=== PATIENT | male | born 1970 | race Two or more races ===

== ENCOUNTER 2019-04-03 12:24 | Emergency (ER) | payer OTHER ==
[~2019-04-03] VITALS: Ht 167.6 cm; Wt 97.0 kg
[2019-04-03] MEDS ORDERED: IV NORMAL SALINE 1000ML BAG 1,000 ML IV ONE (13:00)
[2019-04-03] MEDS ORDERED: methylPREDNISolone SOD SUCC PF 125 MG/2 ML VIAL. IV ONE (13:00)
[2019-04-03] MEDS ORDERED: FAMOTIDINE 20 MG/2 ML VIAL IVP ONE (13:00)
[2019-04-03] MEDS ORDERED: diphenhydrAMINE 50 MG/ML VIAL IVP ONE (13:00)
[2019-04-03 13:18] LABS: BASO % 0 % (0-3); EOS % 1 % (0-3); HEMATOCRIT 47.2 % (39.0-53.0); HEMOGLOBIN 16.2 g/dL (13.0-17.5); LYMPH # 0.4 x10^3/uL (1.0-4.8); LYMPH % 10 % (24-48); MEAN CORPUSCULAR HEMOGLOBIN 32 pg (25-35); MEAN CORPUSCULAR HGB CONC 34 g/dL (31-37); MEAN CORPUSCULAR VOLUME 94 fL (79-100); MONO % 1 % (0-9); NEUT # 3.8 x10^3/uL (1.8-7.7); NEUT % 89 % (31-73); PLATELET COUNT 179 x10^3/uL (140-400); RED BLOOD COUNT 5.01 x10^6/uL (4.30-5.70); RED CELL DISTRIBUTION WIDTH 12.8 % (11.5-14.5); WHITE BLOOD COUNT 4.3 x10^3/uL (4.0-11.0)
--- NOTE | 2019-04-03 13:29 | PHYS DOC ---
Past Medical History Past Medical History: Asthma Past Surgical History: No Surgical History Smoking Status: Never Smoker Alcohol Use: Rarely Drug Use: None Adult General Chief Complaint Chief Complaint: ALLERGIC REACTION HPI HPI Patient is a 48 year old male with history of asthma who presents to the ED today to be evaluated for an allergic reaction. Patient reports he was having a CAT scan of the abdomen and pelvis, he reports when the IV contrast was injected became warm he reports his face became red and he had trouble breathing. He reports his give him Zyrtec and sent to the ED Patient is Malagasy-speaking and interpretation is provided through case packer and sealer line Review of Systems Review of Systems Constitutional: Denies fever or chills [] Eyes: Denies change in visual acuity, redness, or eye pain [] HENT: Denies nasal congestion or sore throat [] Respiratory: Denies cough or shortness of breath [] Cardiovascular: No additional information not addressed in HPI [] GI: Denies abdominal pain, nausea, vomiting, bloody stools or diarrhea [] : Denies dysuria or hematuria [] Musculoskeletal: Denies back pain or joint pain [] Integument: Denies rash or skin lesions [] Neurologic: Denies headache, focal weakness or sensory changes [] Endocrine: Denies polyuria or polydipsia [] All other systems were reviewed and found to be within normal limits, except as documented in this note. Current Medications Current Medications Current Medications Medications (Trade) Dose Ordered Sig/Kirit Start Time Stop Time Status Last Admin Dose Admin Diphenhydramine HCl (Benadryl) 25 mg 1X ONCE 04/03/19 13:00 04/03/19 13:01 DC 04/03/19 13:03 25 MG Famotidine (Pepcid Vial) 20 mg 1X ONCE 04/03/19 13:00 04/03/19 13:01 DC 04/03/19 12:59 20 MG Methylprednisolone Sodium Succinate (SOLU-Medrol 125MG VIAL) 125 mg 1X ONCE 04/03/19 13:00 04/03/19 13:01 DC 04/03/19 13:04 125 MG Sodium Chloride 1,000 ml @ 1,000 mls/hr 1X ONCE 04/03/19 13:00 04/03/19 13:59 DC 04/03/19 13:03 1,000 MLS/HR Allergies Allergies Allergies Coded Allergies Type Severity Reaction Last Updated Verified No Known Allergies Allergy Unknown 06/25/13 Yes Physical Exam Physical Exam Constitutional: Well developed, well nourished, no acute distress, non-toxic appearance. [] HENT: Normocephalic, atraumatic, bilateral external ears normal, oropharynx moist, no oral exudates, nose normal. Airway is open. Eyes: PERRLA, EOMI, conjunctiva normal, no discharge. [] Neck: Normal range of motion, no tenderness, supple, no stridor. [] Cardiovascular:Heart rate regular rhythm, no murmur [] Lungs & Thorax: Bilateral breath sounds clear to auscultation [] Abdomen: Bowel sounds normal, soft, no tenderness, no masses, no pulsatile masses. [] Skin: Warm, dry, no erythema, no rash. [] Back: No tenderness, no CVA tenderness. [] Extremities: No tenderness, no cyanosis, no clubbing, ROM intact, no edema. [] Neurologic: Alert and oriented X 3, normal motor function, normal sensory function, no focal deficits noted. [] Psychologic: Affect normal, judgement normal, mood normal. [] Current Patient Data Vital Signs Vital Signs Date Time Temp Pulse Resp B/P (MAP) Pulse Ox O2 Delivery O2 Flow Rate FiO2 04/03/19 14:48 100 16 133/84 (100) 96 Room Air 04/03/19 12:45 98.7 98.7 Lab Values Laboratory Tests Test 04/03/19 12:37 White Blood Count 4.3 x10^3/uL (4.0-11.0) Red Blood Count 5.01 x10^6/uL (4.30-5.70) Hemoglobin 16.2 g/dL (13.0-17.5) Hematocrit 47.2 % (39.0-53.0) Mean Corpuscular Volume 94 fL (79-100) Mean Corpuscular Hemoglobin 32 pg (25-35) Mean Corpuscular Hemoglobin Concent 34 g/dL (31-37) Red Cell Distribution Width 12.8 % (11.5-14.5) Platelet Count 179 x10^3/uL (140-400) Neutrophils (%) (Auto) 89 % (31-73) H Lymphocytes (%) (Auto) 10 % (24-48) L Monocytes (%) (Auto) 1 % (0-9) Eosinophils (%) (Auto) 1 % (0-3) Basophils (%) (Auto) 0 % (0-3) Neutrophils # (Auto) 3.8 x10^3/uL (1.8-7.7) Lymphocytes # (Auto) 0.4 x10^3/uL (1.0-4.8) L Monocytes # (Auto) 0.0 x10^3/uL (0.0-1.1) Eosinophils # (Auto) 0.0 x10^3/uL (0.0-0.7) Basophils # (Auto) 0.0 x10^3/uL (0.0-0.2) Segmented Neutrophils % 67 % (35-66) H Band Neutrophils % 22 % (0-9) H Lymphocytes % 11 % (24-48) L Platelet Estimate Adequate (ADEQUATE) Sodium Level 142 mmol/L (136-145) Potassium Level 3.6 mmol/L (3.5-5.1) Chloride Level 102 mmol/L (98-107) Carbon Dioxide Level 27 mmol/L (21-32) Anion Gap 13 (6-14) Blood Urea Nitrogen 14 mg/dL (8-26) Creatinine 1.3 mg/dL (0.7-1.3) Estimated GFR (Cockcroft-Gault) 59.2 BUN/Creatinine Ratio 11 (6-20) Glucose Level 81 mg/dL (70-99) Calcium Level 9.0 mg/dL (8.5-10.1) Total Bilirubin 0.3 mg/dL (0.2-1.0) Aspartate Amino Transferase (AST) 18 U/L (15-37) Alanine Aminotransferase (ALT) 22 U/L (16-63) Alkaline Phosphatase 57 U/L (46-116) Total Protein 7.4 g/dL (6.4-8.2) Albumin 4.0 g/dL (3.4-5.0) Albumin/Globulin Ratio 1.2 (1.0-1.7) Laboratory Tests 04/03/19 12:37 Laboratory Tests 04/03/19 12:37 EKG EKG [] Radiology/Procedures Radiology/Procedures [] Course & Med Decision Making Course & Med Decision Making Pertinent Labs and Imaging studies reviewed. (See chart for details) This is a 48-year-old male patient presenting to the ED today for an allergic reaction to contrast dye. Patient had a CAT scan of the abdomen and pelvis IV contrast, he reports when the dye was pushed through the IV he felt warm and his face became red, he also reports shortness of breath. On arrival to the ED, the airway is open, no redness noted anywhere on his body, no rashes, no shortness of breath. Patient was given Benadryl Solu-Medrol and famotidine, also given a liter of fluid. Patient was discharged to home. Provided return precautions. Dragon Disclaimer Dragon Disclaimer This electronic medical record was generated, in whole or in part, using a voice recognition dictation system. Departure Departure Impression: Primary Impression: Allergic reaction to contrast dye Disposition: 01 HOME, SELF-CARE Condition: STABLE Referrals: NON,STAFF (PCP) follow up in 1-2 weeks with your doctor Patient Instructions: Drug Allergy, [id number] Additional Instructions: You were seen in the emergency room, for an adverse reaction to contrast dye. Please follow-up with your own doctor in the course of next week. Come back to the ED at any point symptoms worsen. Problem Qualifiers Primary Impression: Allergic reaction to contrast dye Encounter type: initial encounter Qualified Codes: T50.8X5A - Adverse effect of diagnostic agents, initial encounter CHARMAINE VERDUZCO APRN Apr 03, 2019 13:29
[2019-04-03 13:34] LABS: CREATININE 1.3 mg/dL (0.7-1.3); GFR 59.2; POTASSIUM 3.6 mmol/L (3.5-5.1)
[2019-04-03 13:40] LABS: ALBUMIN/GLOBULIN RATIO 1.2 (1.0-1.7); TOTAL BILIRUBIN 0.3 mg/dL (0.2-1.0); TOTAL PROTEIN 7.4 g/dL (6.4-8.2)
[2019-04-03 14:22] LABS: % BANDS 22 % (0-9); % LYMPHS 11 % (24-48); % SEGS 67 % (35-66); PLT ESTIMATE ADEQUATE (ADEQUATE)
[2019-04-03 14:48] VITALS: BP 133/84
--- NOTE | 2019-04-06 12:39 | EKG ---
[facility] [address] [place] [address] Test Date: 2019-04-03 Test Time: 12:32:19 Pat Name: DANA MA Department: Room: Gender: Materials Scientist: : 1970 Requested By: CHARMAINE VERDUZCO Order Number: [id number] Reading MD: Measurements Intervals [place] Rate: 101 P: -63 DC: 162 QRS: 43 QRSD: 106 T: 26 QT: 308 QTc: 405 Interpretive Statements SINUS TACHYCARDIA INDETERMINATE AXIS NON SPECIFIC ST-T ABNORMALITY (ELEVATION) BORDERLINE ECG No previous ECG available for comparison
== END 2019-04-03 15:31 | disposition home or self-care (01) ==
LOC: ER 12:24
DX: R06.00 Dyspnea, unspecified (principal); T50.8X5A Adverse effect of diagnostic agents, initial encounter; L53.8 Other specified erythematous conditions; J45.909 Unspecified asthma, uncomplicated; Y92.89 Other specified places as the place of occurrence of the external cause
CPT/HCPCS: 36415; 80053; 85007; 85025; 93005; 96374; 96375; 99284; J1200; J2930; J3490; J7030

== ENCOUNTER → 2019-10-23 | Outpatient (CLI) | payer OTHER | END | disposition home or self-care (01) | LOC: LAB 13:44 | PROVIDERS: ATTEND Surgery | DX: U07.1 COVID-19 (principal) | CPT/HCPCS: U0003-CS ==

== ENCOUNTER → 2019-11-13 | Outpatient (CLI) | payer OTHER ==
[~2019-11-13] MED LIST: ALBU2.5V8 INH; ASCO500C PO; DICY20TA3 PO; ERGO500027 PO; FEXO60TA25 PO; OMEP40CA45 PO; OXYC1TAB15 PO
== END | disposition home or self-care (01) ==
LOC: LAB 14:26
PROVIDERS: ATTEND Surgery
DX: Z01.812 Encounter for preprocedural laboratory examination (principal); Z20.828 Contact with and (suspected) exposure to other viral communicable diseases; K82.8 Other specified diseases of gallbladder
CPT/HCPCS: U0003-CS

== ENCOUNTER 2019-11-19 07:34 | Day surgery (SDC) | payer OTHER ==
[~2019-11-19] VITALS: Ht 162.6 cm; Wt 100.0 kg
[~2019-11-19 07:34] MED LIST changes: +ACETAMINOPHEN 500 MG TABLET PO PRN; +HYDROmorphone 2 MG/ML VIAL IV PRN; +IV RINGERS,LACTATED 1000ML 1,000 ML IV SCH; +LIDOCAINE 2% PF 5 ML VIAL. ONE; +MORPHINE SULFATE 2 MG/ML VIAL. IV PRN; +ONDANSETRON PF 4 MG/2 ML VIAL. IV PRN; -OXYC1TAB15 PO; +PROPOFOL 10 MG/ML (20ML) VIAL. IV ONE; +ROCURONIUM 50 MG/5 ML VIAL. ONE; +SUCCINYLCHOLINE 200 MG/10 ML VIAL. ONE; +fentaNYL PF VIAL 100 MCG/2 ML VIAL IV PRN; +fentaNYL PF VIAL 100 MCG/2 ML VIAL ONE
[2019-11-19] MEDS ORDERED: IOHEXOL 300 MG/ML 50 ML VIAL. ONE (07:46)
[2019-11-19] MEDS ORDERED: SURGICEL HEMOSTAT 4X8 EACH. ONE (07:47)
[2019-11-19] MEDS ORDERED: BUPIVACAINE-EPI 0.25%-1:200000 MPF 30 ML VIAL. INJ ONE (08:00)
[2019-11-19] MEDS ORDERED: DEXAMETHASONE SOD PHOS 4 MG/ML VIAL ONE (08:29)
[2019-11-19] MEDS ORDERED: ONDANSETRON PF 4 MG/2 ML VIAL. ONE (08:38)
[2019-11-19] MEDS ORDERED: DESFLURANE 31 TO 60 MINUTES IH ONE (08:48)
[2019-11-19] MEDS ORDERED: NEOSTIGMINE METHYLSULFATE 5 MG/5 ML SYRINGE. ONE (08:48)
[2019-11-19] MEDS ORDERED: GLYCOPYRROLATE 1 MG/5 ML VIAL. ONE (08:48)
[2019-11-19] MEDS ORDERED: PHENYLEPHRINE in 0.9% NACL PF 1 MG/10 ML SYRINGE. IV ONE (08:51)
--- NOTE | 2019-11-19 09:02 | PDOC4 ---
Operative Note Operative Note Date: 2019 at 859 Preoperative diagnosis: Biliary dyskinesia Postoperative diagnosis: Same Procedure: Laparoscopic cholecystectomy Surgeon: Carl Specimen: Gallbladder Dictation: Patient is a 48-year-old gentleman with right upper quadrant abdominal pain and a HIDA scan with abnormal ejection fraction. Procedure of laparoscopic cholecystectomy was explained to the patient in detail through public address system operator all risk benefits were also discussed occluding bleeding infection injury to intra-abdominal contents possible necessitating further or open operations alternatives to this procedure also discussed with the patient who seemed to understand and gave both verbal and written consent to have the procedure performed. Patient was taken to the operating room placed in the supine position general anesthesia was initiated once patient was sleeping intubated his abdomen was prepped and draped usual sterile fashion using ChloraPrep. An area just below the umbilicus was injected with quarter percent Marcaine with epinephrine incision was made with 11 blade scalpel and a varies needle was placed within the abdomen creating pneumoperitoneum. Once this was complete 11 mm port was placed and a 5 mm camera was placed within the abdomen which was inspected no other abnormalities were noted. A 5 mm port was placed in the epigastrium a 5 mm port was placed in the right midabdomen and a 5 mm port was placed in the right lateral abdomen. The dome of the gallbladder is grasped retracted cephalad the infundibulum the gallbladder is grasped retracted laterally exposing the triangle adherent tissues the triangle were taken down exposing the cystic duct and cystic artery both were doubly clipped and transected the gallbladder is taken off the liver with hook electrocautery placed in Endo Catch bag removed from the umbilicus the right upper quadrant was irrigated and suctioned dry hemostasis deemed to be appropriate and the pneumoperitoneum was reduced all ports were removed the fascial defect at the umbilicus was closed with a [id number] 0 Vicryl suture and the skin was reapproximated all port sites for subcuticular Monocryl Mastisol Steri-Strips and island dressings were applied. Patient was awakened and extubated in the operating room taken to recovery in stable condition all sponge instrument needle counts listed as correct. Estimated blood loss 5 mL. ALLISON SANDERS MD Nov 19, 2019 09:02
--- NOTE | 2019-11-19 09:04 | DISCH ---
DISCHARGE INSTRUCTIONS Condition on Discharge Condition on Discharge: Stable Activity After Discharge Activity Instructions for Disc: Avoid exertion Other activity instructions: No lifting more than 20 pounds for 2 weeks Diet after Discharge Diet after Discharge: Low Fat Wound Incision Care Other wound/incision instructi: May shower in 24 hours Contacting the after DC Call your doctor for: If your condition worsens Follow-Up Follow up with: Dr. Sanders in 2 weeks ALLISON SANDERS MD Nov 19, 2019 09:04
[2019-11-19] MEDS ORDERED: fentaNYL PF VIAL 100 MCG/2 ML VIAL ONE (09:06)
[2019-11-19] MEDS ORDERED: PROCHLORPERAZINE 10 MG/2 ML VIAL. ONE (09:12)
[2019-11-19] MEDS ORDERED: OXYC1TAB15 PO (09:15)
[2019-11-19] MEDS: PROCHLORPERAZINE 10 MG/2 ML VIAL. IV PRN ×2 (09:16→10:05)
[2019-11-19] MEDS: fentaNYL PF VIAL 100 MCG/2 ML VIAL IV PRN ×2 (09:16→09:43)
[2019-11-19] MEDS ORDERED: oxyCODONE/APAP 5/325 1 TAB TABLET PO ONE ×2 (09:45)
[2019-11-19 10:40] VITALS: BP 139/88
--- NOTE | 2019-11-24 08:32 | PDOC1 ---
History and Physical Date of Admission Date of Admission DATE: 11/19/19 TIME: 08:30 Identification/Chief Complaint Chief Complaint Abdominal pain Source Source: Patient History of Present Illness History of Present Illness 48-year-old male with right upper quadrant abdominal pain worse after eating ultrasound was normal but HIDA scan was abnormal with a low ejection fraction Past Medical History Cardiovascular: No pertinent hx Pulmonary: No pertinent hx GI: No pertinent hx Heme/Onc: No pertinent hx Hepatobiliary: No pertinent hx Psych: No pertinent hx Rheumatologic: No pertinent hx Infectious disease: No pertinent hx ENT: No pertinent hx Renal/: No pertinent hx Endocrine: No pertinent hx Dermatology: No pertinent hx Past Surgical History Past Surgical History: No pertinent history Family History Family History: No Significant Social History Smoke: No ALCOHOL: none Drugs: None Current Medications Current Medications Current Medications Ondansetron HCl (Zofran) 4 mg PRN Q6HRS PRN IV NAUSEA/VOMITING; Start 11/19/19 at 07:00; Stop 11/19/19 at 12:05; Status DC Fentanyl Citrate (Fentanyl 2ml Vial) 25 mcg PRN Q5MIN PRN IV MILD PAIN 1-3; Start 11/19/19 at 07:00; Stop 11/19/19 at 12:05; Status DC Fentanyl Citrate (Fentanyl 2ml Vial) 50 mcg PRN Q5MIN PRN IV MODERATE TO SEVERE PAIN Last administered on 11/19/19at 09:43; Start 11/19/19 at 07:00; Stop 11/19/19 at 12:05; Status DC Morphine Sulfate (Morphine Sulfate) 1 mg PRN Q10MIN PRN IV SEVERE PAIN 7-10; Start 11/19/19 at 07:00; Stop 11/19/19 at 12:05; Status DC Ringer's Solution 1,000 ml @ 30 mls/hr Q24H IV Last administered on 11/19/19at 10:41; Start 11/19/19 at 07:00; Stop 11/19/19 at 12:05; Status DC Hydromorphone HCl (Dilaudid) 0.5 mg PRN Q10MIN PRN IV SEV PAIN, Second choice; Start 11/19/19 at 07:00; Stop 11/19/19 at 12:05; Status DC Prochlorperazine Edisylate (Compazine) 5 mg PACU PRN PRN IV NAUSEA, MRX1 Last administered on 11/19/19at 10:05; Start 11/19/19 at 07:00; Stop 11/19/19 at 12:05; Status DC Cefazolin Sodium/ Dextrose 50 ml @ 100 mls/hr 1X PREOP PRN IV PRIOR TO PROCEDURE Last administered on 11/19/19at 08:16; Start 11/19/19 at 06:00; Stop 11/19/19 at 12:05; Status DC Acetaminophen (Tylenol) 1,000 mg 1X PREOP PRN PO PRIOR TO PROCEDURE; Start 11/19/19 at 06:00; Stop 11/19/19 at 12:05; Status DC Propofol (Diprivan) 200 mg STK-MED ONCE IV ; Start 11/19/19 at 07:26; Stop 11/19/19 at 07:27; Status DC Lidocaine HCl (Lidocaine Pf 2% Vial) 5 ml STK-MED ONCE .ROUTE ; Start 11/19/19 at 07:26; Stop 11/19/19 at 07:27; Status DC Succinylcholine Chloride (Anectine) 200 mg STK-MED ONCE .ROUTE ; Start 11/19/19 at 07:27; Stop 11/19/19 at 07:27; Status DC Rocuronium Hillman (Zemuron) 50 mg STK-MED ONCE .ROUTE ; Start 11/19/19 at 07:27; Stop 11/19/19 at 07:27; Status DC Fentanyl Citrate (Fentanyl 2ml Vial) 100 mcg STK-MED ONCE .ROUTE ; Start 11/19/19 at 07:27; Stop 11/19/19 at 07:27; Status DC Iohexol (Omnipaque 300 Mg/ml) 50 ml STK-MED ONCE .ROUTE ; Start 11/19/19 at 07:46; Stop 11/19/19 at 07:46; Status DC Cellulose (Surgicel Hemostat 4x8) 1 each STK-MED ONCE .ROUTE ; Start 11/19/19 at 07:47; Stop 11/19/19 at 07:47; Status DC Bupivacaine HCl/ Epinephrine Bitart (Sensorcaine-Epi 0.25%-1:528031 Mpf) 30 ml 1X ONCE INJ Last administered on 11/19/19at 08:40; Start 11/19/19 at 08:00; Stop 11/19/19 at 08:01; Status DC Dexamethasone Sodium Phosphate (Decadron) 4 mg STK-MED ONCE .ROUTE ; Start 11/19/19 at 08:29; Stop 11/19/19 at 08:30; Status DC Ondansetron HCl (Zofran) 4 mg STK-MED ONCE .ROUTE ; Start 11/19/19 at 08:38; Stop 11/19/19 at 08:38; Status DC Desflurane (Suprane) 30 ml STK-MED ONCE IH ; Start 11/19/19 at 08:48; Stop 11/19/19 at 08:48; Status DC Neostigmine Hillman (Neostigmine Methylsulfate) 5 mg STK-MED ONCE .ROUTE ; Start 11/19/19 at 08:48; Stop 11/19/19 at 08:48; Status DC Glycopyrrolate (Robinul) 1 mg STK-MED ONCE .ROUTE ; Start 11/19/19 at 08:48; Stop 11/19/19 at 08:48; Status DC Phenylephrine HCl (PHENYLEPHRINE in 0.9% NACL PF) 1 mg STK-MED ONCE IV ; Start 11/19/19 at 08:51; Stop 11/19/19 at 08:51; Status DC Fentanyl Citrate (Fentanyl 2ml Vial) 100 mcg STK-MED ONCE .ROUTE ; Start 11/19/19 at 09:06; Stop 11/19/19 at 09:06; Status DC Prochlorperazine Edisylate (Compazine) 10 mg STK-MED ONCE .ROUTE ; Start 11/19/19 at 09:12; Stop 11/19/19 at 09:13; Status DC Oxycodone/ Acetaminophen (Percocet 5/325) 1 tab 1X ONCE PO Last administered on 11/19/19at 10:22; Start 11/19/19 at 09:45; Stop 11/19/19 at 09:46; Status DC Oxycodone/ Acetaminophen (Percocet 5/325) 2 tab 1X ONCE PO ; Start 11/19/19 at 09:45; Stop 11/19/19 at 09:46; Status DC Active Scripts Active Reported Percocet 5-325 Mg Tablet (Oxycodone/Acetaminophen) 1 Each Tablet 1-2 Tab PO PRN Q6HRS PRN Proair Hfa Inhaler (Albuterol Sulfate) 8.5 Gm Hfa.aer.ad 1 Puff INH PRN Q6HRS PRN Vitamin D2 (Ergocalciferol (Vitamin D2)) 1,250 Mcg Capsule 50,000 Mcg PO WEEKLY Vitamin C (Ascorbic Acid) 500 Mg Capsule.er 500 Mg PO DAILY Dicyclomine Hcl 20 Mg Tablet 60 Mg PO PRN Q6-8HRS PRN Rachael Allergy (Fexofenadine Hcl) 60 Mg Tablet 120 Mg PO PRN PRN Omeprazole 40 Mg Capsule.dr 40 Mg PO DAILY Allergies Allergies: Coded Allergies: Iodinated Contrast Media (Verified Allergy, Intermediate, Rash, 11/19/19) ROS Gastrointestinal: Yes Abdominal Pain Physical Exam General: Alert, Oriented X3, Cooperative, No acute distress HEENT: Atraumatic, EOMI Lungs: Clear to auscultation, Normal air movement Heart: RRR Abdomen: Normal bowel sounds, Soft, Other (Mildly tender to palpation right upper quadrant) Extremities: No edema Skin: No significant lesion Neuro: Normal speech Psych/Mental Status: Mental status NL Vitals Vitals Vital Signs Date Time Temp Pulse Resp B/P (MAP) Pulse Ox O2 Delivery O2 Flow Rate FiO2 11/19/19 10:40 84 16 139/88 94 Room Air 11/19/19 10:25 2.0 11/19/19 09:10 98.1 98.1 VTE Prophylaxis Ordered VTE Prophylaxis Devices: Yes VTE Pharmacological Prophylaxi: Contraindicated Assessment/Plan Assessment/Plan Biliary dyskinesia plan laparoscopic cholecystectomy Justifications for Admission Other Justification ALLISON SANDERS MD Nov 24, 2019 08:32
--- NOTE | 2019-11-24 13:08 | PATHOLOGY ---
[facility] Accession Number: [id number] . 01 Material submitted: . gallbladder - GALLBLADDER AND CONTENTS . 01 Clinical history: . BILIARY DYSKINESIA . 02 Diagnosis: Gallbladder, excision: - Chronic cholecystitis. - Cholesterolosis. (MLK:nader; 11/23/2019) MBR 11/23/2019 1454 Local . 02 Electronically signed: . Javier Hayes MD, Pathologist NPI- [id number] . 01 Gross description: . The specimen is received in a sealed laparoscopic bag in formalin, labeled "Jeet Moss, gallbladder and contents". Received is a previously punctured gallbladder measuring 7.3 x 3.5 x 0.8 cm in greatest dimensions displaying a bile-stained serosal surface. Opening the specimen reveals a velvety, bile-stained mucosa with mild, diffuse cholesterolosis, and with a gallbladder wall thickness of 0.1 cm. Calculi are not present, and no masses or lesions are noted grossly. Marketing Research Analyst sections, to include the proximal margin, are submitted in cassette A1. ([facility]; 11/20/2019) QAC/QA 11/20/2019 1047 Local . 02 Pathologist provided ICD-10: K81.1, K82.4 . 02 CPT . 476773 Specimen Comment: A courtesy copy of this report has been sent to [phone], [phone] Specimen Comment: [id number] Specimen Comment: Report sent to / DR GONGORA Performed at: 01 [facility] [address], [place], [place] [id number] MD Francis Shoemaker MD Phone: [phone] Performed at: 02 [facility] [address], [place] [id number] MD Pepe Mcmillan MD Phone: [phone]
== END 2019-11-19 11:58 | disposition home or self-care (01) ==
LOC: SURG 07:34
PROVIDERS: ATTEND Surgery
DX: K82.4 Cholesterolosis of gallbladder (principal); Z88.8 Allergy status to other drugs, medicaments and biological substances; Z79.899 Other long term (current) drug therapy
CPT/HCPCS: 47562; 88304; A7015; J0330; J0690; J0780; J1100; J2370; J2405; J2704; J2710; J3010; J3490; J7030; Q9967

== ENCOUNTER 2021-05-06 14:57 | Emergency (ER) | payer OTHER ==
[~2021-05-06] VITALS: Ht 160 cm; Wt 100.0 kg
[~2021-05-06 14:57] MED LIST changes: -ACETAMINOPHEN 500 MG TABLET PO PRN; +DICY20TA PO; -DICY20TA3 PO; -ERGO500027 PO; +ERGO500089 PO; -HYDROmorphone 2 MG/ML VIAL IV PRN; -IV RINGERS,LACTATED 1000ML 1,000 ML IV SCH; -LIDOCAINE 2% PF 5 ML VIAL. ONE; -MORPHINE SULFATE 2 MG/ML VIAL. IV PRN; -OMEP40CA45 PO; +OMEP40CA7 PO; -ONDANSETRON PF 4 MG/2 ML VIAL. IV PRN; +OXYC1TAB15 PO; -PROPOFOL 10 MG/ML (20ML) VIAL. IV ONE; -ROCURONIUM 50 MG/5 ML VIAL. ONE; -SUCCINYLCHOLINE 200 MG/10 ML VIAL. ONE; -fentaNYL PF VIAL 100 MCG/2 ML VIAL IV PRN; -fentaNYL PF VIAL 100 MCG/2 ML VIAL ONE
[2021-05-06 16:26] LABS: BASO % 1 % (0-3); EOS # 0.2 x10^3/uL (0.0-0.7); EOS % 4 % (0-3); HEMATOCRIT 42.5 % (39.0-53.0); HEMOGLOBIN 14.7 g/dL (13.0-17.5); LYMPH # 1.8 x10^3/uL (1.0-4.8); LYMPH % 29 % (24-48); MEAN CORPUSCULAR HEMOGLOBIN 32 pg (25-35); MEAN CORPUSCULAR HGB CONC 35 g/dL (31-37); MEAN CORPUSCULAR VOLUME 91 fL (79-100); MONO # 0.5 x10^3/uL (0.0-1.1); MONO % 8 % (0-9); NEUT # 3.6 x10^3/uL (1.8-7.7); NEUT % 58 % (31-73); PLATELET COUNT 244 x10^3/uL (140-400); RED BLOOD COUNT 4.65 x10^6/uL (4.30-5.70); RED CELL DISTRIBUTION WIDTH 12.9 % (11.5-14.5); WHITE BLOOD COUNT 6.2 x10^3/uL (4.0-11.0)
--- NOTE | 2021-05-06 16:32 | ED.ADGEN ---
Past Medical History Past Medical History: Asthma Additional Past Medical Histor: GASTRITIS AND ULCERS Past Surgical History: Cholecystectomy Smoking Status: Never Smoker Alcohol Use: None Drug Use: None General Adult EDM: Chief Complaint: FLANK PAIN HPI: HPI: Patient is a 50 year old male coming in for right flank for 2 days. Patient states the pain has been getting worse. Denies of nausea, vomiting. Patient states he had a normal bowel movement this morning. Denies any hematuria dysuria. No past abdominal surgical history. Has had 6 checked fever, chest Review of Systems: Review of Systems: All other systems within normal limits except for as noted in the HPI Current Medications: Current Medications Medications (Trade) Dose Ordered Sig/Kirit Start Time Stop Time Status Last Admin Dose Admin Fentanyl Citrate (Fentanyl 2ml Vial) 75 mcg 1X ONCE 05/06/21 16:45 05/06/21 16:46 DC 05/06/21 16:40 75 MCG Ondansetron HCl (Zofran) 4 mg 1X ONCE 05/06/21 16:45 05/06/21 16:46 DC 05/06/21 16:40 4 MG Allergies: Allergies: Allergies Coded Allergies Type Severity Reaction Last Updated Verified Iodinated Contrast Media Allergy Intermediate Rash 11/19/19 Yes Physical Exam: PE: Constitutional: Well developed, well nourished, no acute distress, non-toxic appearance. [] HENT: Normocephalic, atraumatic, bilateral external ears normal, nose normal. [] Eyes: PERRLA, conjunctiva normal, no discharge. [] Neck: No rigidity, supple, no stridor. [] Cardiovascular: Regular rate and rhythm, brisk cap refill [] Lungs & Thorax: Non labored symmetric respirations, no tachypnea or respiratory distress [] Abdomen: Soft, nondistended, negative Conway sign, no McBurney point tenderness. Skin: Warm, dry, no erythema, no rash. [] Back: Unremarkable, right CVA tenderness, no point spinal tenderness Extremities: No deformities, range of motion grossly intact, no lower extremity edema [] Neurologic: Alert and oriented X 3, no focal deficits noted. [] Psychologic: Affect normal, judgement normal, mood normal. [] Current Patient Data: Labs: Laboratory Tests Test 05/06/21 15:45 05/06/21 16:00 Urine Collection Type Unknown Urine Color (Auto) Light yellow Urine Turbidity Clear Urine pH (Auto) 6.0 (<5.0-8.0) Urine Specific Garner 1.019 (1.000-1.030) Urine Protein (Auto) Negative mg/dL (Negative) Urine Glucose (Auto)(UA) Negative mg/dL (Negative) Urine Ketones (Auto) Negative mg/dL (Negative) Urine Blood (Auto) Negative (Negative) Urine Nitrite Negative (Negative) Urine Bilirubin (Auto) Negative (Negative) Urine Urobilinogen (Auto) Normal mg/dL (Normal) Urine Leukocyte Esterase (Auto) Negative (Negative) Urine RBC 1-2 /HPF (0-2) Urine WBC 1-4 /HPF (0-4) Urine Squamous Epithelial Cells Occ /LPF Urine Bacteria 0 /HPF (0-FEW) White Blood Count 6.2 x10^3/uL (4.0-11.0) Red Blood Count 4.65 x10^6/uL (4.30-5.70) Hemoglobin 14.7 g/dL (13.0-17.5) Hematocrit 42.5 % (39.0-53.0) Mean Corpuscular Volume 91 fL (79-100) Mean Corpuscular Hemoglobin 32 pg (25-35) Mean Corpuscular Hemoglobin Concent 35 g/dL (31-37) Red Cell Distribution Width 12.9 % (11.5-14.5) Platelet Count 244 x10^3/uL (140-400) Neutrophils (%) (Auto) 58 % (31-73) Lymphocytes (%) (Auto) 29 % (24-48) Monocytes (%) (Auto) 8 % (0-9) Eosinophils (%) (Auto) 4 % (0-3) H Basophils (%) (Auto) 1 % (0-3) Neutrophils # (Auto) 3.6 x10^3/uL (1.8-7.7) Lymphocytes # (Auto) 1.8 x10^3/uL (1.0-4.8) Monocytes # (Auto) 0.5 x10^3/uL (0.0-1.1) Eosinophils # (Auto) 0.2 x10^3/uL (0.0-0.7) Basophils # (Auto) 0.0 x10^3/uL (0.0-0.2) Sodium Level 139 mmol/L (136-145) Potassium Level 4.0 mmol/L (3.5-5.1) Chloride Level 105 mmol/L (98-107) Carbon Dioxide Level 26 mmol/L (21-32) Anion Gap 8 (6-14) Blood Urea Nitrogen 20 mg/dL (8-26) Creatinine 1.1 mg/dL (0.7-1.3) Estimated GFR (Cockcroft-Gault) 71.1 BUN/Creatinine Ratio 18 (6-20) Glucose Level 97 mg/dL (70-99) Calcium Level 8.5 mg/dL (8.5-10.1) Total Bilirubin 0.3 mg/dL (0.2-1.0) Aspartate Amino Transferase (AST) 22 U/L (15-37) Alanine Aminotransferase (ALT) 41 U/L (16-63) Alkaline Phosphatase 54 U/L (46-116) Total Protein 7.6 g/dL (6.4-8.2) Albumin 4.1 g/dL (3.4-5.0) Albumin/Globulin Ratio 1.2 (1.0-1.7) Lipase 87 U/L (73-393) Laboratory Tests 05/06/21 16:00 Laboratory Tests 05/06/21 16:00 Vital Signs: Vital Signs Date Time Temp Pulse Resp B/P (MAP) Pulse Ox O2 Delivery O2 Flow Rate FiO2 05/06/21 16:54 63 20 122/72 (89) 94 Room Air 05/06/21 15:26 99.3 99.3 EKG: EKG: [] Heart Score: C/O Chest Pain: No Risk Factors: Risk Factors: DM, Current or recent (<one month) smoker, HTN, HLP, family history of CAD, obesity. Risk Scores: Score 0 - 3: 2.5% MACE over next 6 weeks - Discharge Home Score 4 - 6: 20.3% MACE over next 6 weeks - Admit for Clinical Observation Score 7 - 10: 72.7% MACE over next 6 weeks - Early Invasive Strategies Radiology/Procedures: Radiology/Procedures: [][facility] [address] [place], [place] [id number] IMAGING REPORT Signed PATIENT: MANISHA MACOUNT: [id number] : 1970 LOCATION: ER AGE: 50 SEX: M EXAM STATUS: REG ER ORD. PHYSICIAN: SARANYA NICE MD REASON: Right flank pain PROCEDURE: CT ABDOMEN PELVIS WO CONTRAST Exam: CT of abdomen and pelvis without contrast INDICATION: Right flank pain TECHNIQUE: Sequential axial images through the abdomen and pelvis obtained without IV contrast. Sagittal and coronal reformatted images were reconstructed from the axial data and reviewed. Exposure: One or more of the following in the visualized dose reduction techniques were utilized for this examination: 1. Automated exposure control 2. Adjustment of the MA and/or KV according to patient size 3. Use of iterative of reconstructive technique Comparisons: None FINDINGS: Heart size is normal. No pericardial effusion. Visualized lung bases are clear. No pleural effusion. Evaluation of solid organs limited secondary to noncontrast technique. Diffuse hepatic steatosis. Spleen, pancreas and adrenals are unremarkable. Gallbladder surgically absent. No perinephric inflammation or hydronephrosis. No renal or ureteral calculi are identified. Bladder is partially distended and not well evaluated. Prostate is not enlarged. Moderate amount stool is noted in the colon. Appendix is normal. No free intra- abdominal air or fluid. No obstruction. Abdominal aorta has normal course and caliber. No enlarged intra-abdominal lymph nodes are identified. No suspicious osseous lesions or acute fractures. IMPRESSION: 1. No renal or ureteral calculi. No evidence for obstructive uropathy. 2. Diffuse hepatic steatosis. 3. No acute processes identified within the abdomen or pelvis. Electronically signed by: Rico Wiggins MD (05/06/2021 5:37 PM) [facility] DICTATED and SIGNED BY: RICO WIGGINS MD DATE: 05/06/211731 Course & Med Decision Making: Course & Med Decision Making Pertinent Labs and Imaging studies reviewed. (See chart for details) No significant pathology identified. Patient's pain is reproduced with palpation, will treat as likely musculoskeletal pain with return precautions [] Dragon Disclaimer: Dragon Disclaimer: This electronic medical record was generated, in whole or in part, using a voice recognition dictation system. Departure Departure Impression: Primary Impression: Right flank pain Disposition: HOME / SELF CARE / HOMELESS Condition: STABLE Referrals: REYNALDO GONGORA MD (PCP) Patient Instructions: Back Exercises Scripts Meloxicam (MELOXICAM) 15 Mg Tablet 1 TAB PO DAILY PRN for PAIN for 10 Days, #10 TAB 0 Refills Prov: SARANYA NICE MD 05/06/21 Cyclobenzaprine Hcl (CYCLOBENZAPRINE HCL) 10 Mg Tablet 1 TAB PO TID PRN for MUSCLE PAIN for 5 Days, #15 TAB Prov: SARANYA NICE MD 05/06/21 SARANYA NICE MD May 06, 2021 16:32
[2021-05-06 16:38] LABS: CALCIUM 8.5 mg/dL (8.5-10.1); CREATININE 1.1 mg/dL (0.7-1.3); GFR 71.1
[2021-05-06 16:40] LABS: BACTERIA,URINE 0 /HPF (0-FEW)
[2021-05-06 16:41] LABS: ALBUMIN 4.1 g/dL (3.4-5.0); ALBUMIN/GLOBULIN RATIO 1.2 (1.0-1.7); TOTAL BILIRUBIN 0.3 mg/dL (0.2-1.0); TOTAL PROTEIN 7.6 g/dL (6.4-8.2)
[2021-05-06] MEDS ORDERED: ONDANSETRON PF 4 MG/2 ML VIAL. IVP ONE (16:45)
[2021-05-06] MEDS ORDERED: fentaNYL PF VIAL 100 MCG/2 ML VIAL IVP ONE (16:45)
--- NOTE | 2021-05-06 17:40 | RAD ---
Exam: CT of abdomen and pelvis without contrast INDICATION: Right flank pain TECHNIQUE: Sequential axial images through the abdomen and pelvis obtained without IV contrast. Sagit ezequiel and coronal reformatted images were reconstructed from the axial data and reviewed. Exposure: One or more of the following in the visualized dose reduction techniques were utilized for this examination: 1. Automated exposure control 2. Adjustment of the MA and/or KV according to patient size 3. Use of iterative of reconstructive technique Comparisons: None FINDINGS: Heart size is normal. No pericardial effusion. Visualized lung bases are clear. No pleural effusion. Evaluation of solid organs limited secondary to noncontrast technique. Diffuse hepatic steatosis. Spleen, pancreas and adrenals are unremarkable. Gallbladder surgically abs ent. No perinephric inflammation or hydronephrosis. No renal or ureteral calculi are identified. Bladder is partially distended and not well evaluated. Prostate is not enlarged. Moderate amount stool is noted in the colon. Appendix is normal. No free intra-abdominal air or fluid . No obstruction. Abdominal aorta has normal course and caliber. No enlarged intra-abdominal lymph nodes are identified. No suspicious osseous lesions or acute fractures. IMPRESSION: 1. No renal or ureteral calculi. No evidence for obstructive uropathy. 2. Diffuse hepatic steatosis. 3. No acute processes identified within the abdomen or pelvis. Electronically signed by: Rico Whitt MD (05/06/2021 5:37 PM) [facility]
[2021-05-06 17:54] VITALS: BP 116/67
[2021-05-06] MEDS ORDERED: CYCL10TA19 PO (17:57)
[2021-05-06] MEDS ORDERED: MELO15TA23 PO (17:57)
[2021-05-06] MEDS ORDERED: KETOROLAC 15 MG/ML VIAL. IVP ONE (18:00)
[2021-05-06] MEDS ORDERED: ORPHENADRINE CITRATE 60 MG/2 ML VIAL. IM ONE (18:00)
== END 2021-05-06 18:15 | disposition home or self-care (01) ==
LOC: ER 14:57
DX: R10.9 Unspecified abdominal pain (principal); J45.909 Unspecified asthma, uncomplicated; Z90.49 Acquired absence of other specified parts of digestive tract; Z91.041 Radiographic dye allergy status
CPT/HCPCS: 36415; 74176; 80053; 81001; 83690; 85025; 96372; 96374; 96375; 99285; J1885; J2360; J2405; J3010